=== PATIENT | female | born 1925 | race Caucasian/White ===

== ENCOUNTER 2016-10-15 01:58 | Emergency (ER) | payer MEDICARE ==
[2016-10-15] MEDS ORDERED: Sodium Chloride 0.9% 1000 ML 1,000 ML IV STA ×2 (02:31→04:39)
[2016-10-15 02:50] LABS: A-aADO2 15; ARTERIAL BLD GAS O2 SATURATION 98.8 % (95-100); ARTERIAL BLOOD GAS BASE EXCESS -6.4 (-2.0-2.0); ARTERIAL BLOOD GAS FIO2 21 %; ARTERIAL BLOOD GAS PO2 112 mmHg (75-100); ARTERIAL BLOOD GAS pH 7.52 (7.35-7.45)
--- NOTE | 2016-10-15 02:50 | ERPHSYRPT ---
- History of Present Illness Time Seen by Provider: 10/15/16 02:10 Historian: patient, custodial records Exam Limitations: clinical condition Patient Subjective Stated Complaint: Pt with decreased mental status per ECF report, vomiting, back and abd pain. Pt sts she hurts "all over". Triage Nursing Assessment: Pt alert, able to open eyes spontaneously, follow commands. Skin pale, diaphoretic, very warm to touch. RR 40-48/min, shallow. Weak thready radial and brachial pulse, strong carotid pulse. Cap refill 3 seconds. Physician History: PATIENT WITH HISTORY OF HYPERTENSION AND COPD, TRANSFERRED FROM [place] FOR EVALUATION OF ABDOMINAL PainN WITH DIFFICULTY BREATHING. Timing/Duration: today Quality: cramping, sharpness Abdominal Pain Onset Location: generalized abdomen Pain Radiation: no radiation Severity of Pain-Max: moderate Severity of Pain-Current: moderate Associated Symptoms: back, nausea, shortness of breath, vomiting Previous symptoms: same symptoms as today Allergies/Adverse Reactions: Penicillins Allergy (Verified 10/15/16 03:26) propoxyphene Allergy (Verified 10/15/16 03:26) Home Medications: Alprazolam [Xanax 0.5 mg] 0.5 mg PO BID 03/21/14 [History] Carvedilol 6.25 mg [Coreg 6.25 MG] 3.125 mg PO BID 03/21/14 [History] Furosemide [Lasix] 30 mg PO DAILY 03/21/14 [History] PANTOPRAZOLE 40 mg Tablet [Protonix 40MG Tablet] 20 mg PO HS 03/21/14 [ History] Potassium Chloride 10 Meq Tab* [Klor Con 10 MEQ] 10 meq PO TID 03/21/14 [ History] Aspirin 81 mg PO DAILY 05/17/14 [History] Docusate Sodium 100 mg [Colace 100 MG] 100 mg PO BID 05/17/14 [History] Oxycodone HCl/Acetaminophen [Percocet 7.5-325 mg Tablet] 1 each PO TID 05/17/14 [History] Albuterol 2.5 mg/0.5 ml [PROVENTIL Solution 2.5 MG/0.5 ML] 0.083 mg IH Q4H PRN PRN 05/16/15 [History] Atorvastatin Calcium [Lipitor 20MG Tablet] 20 mg PO HS 05/16/15 [History] Fentanyl 50Mcg Patch [Duragesic 50MCG Patch] 50 mcg TOP Q3D 05/16/15 [ History] Promethazine HCl 25 mg PO Q4H PRN PRN 05/16/15 [History] Allopurinol 100 mg [Zyloprim 100 mg] 100 mg PO DAILY 10/15/16 [History] Cranberry Fruit [Cranberry] 400 mg PO BID 10/15/16 [History] Magnesium Hydroxide 30 ml [Milk of Magnesia 30 ml] 30 ml PO DAILY PRN PRN 10/15/16 [History] Meloxicam 7.5 mg [Mobic 7.5 MG] 7.5 mg PO DAILY 10/15/16 [History] Mirtazapine [Remeron] 7.5 mg PO HS 10/15/16 [History] Nitrofurantoin Macro 100 mg [Macrobid 100MG Capsule] 100 mg PO BID [History] Hx Tetanus, Diphtheria Vaccination/Date Given: Yes Hx Influenza Vaccination/Date Given: Yes Hx Pneumococcal Vaccination/Date Given: Yes - Past Medical History Pertinent Past Medical History: Yes Neurological History: TIA ENT History: Cataracts Cardiac History: Congestive Heart Failure, Coronary Artery Disease, Hypertension , Myocardial Infarction (OR) Respiratory History: CHF Endocrine Medical History: Hypothyroidism Musculoskeletal History: Osteoarthritis GI Medical History: Diverticulitis, Gallbladder Disease History: No Pertinent History Psycho-Social History: No Pertinent History Female Reproductive Disorders: No Pertinent History Other Medical History: shingles - Past Surgical History Past Surgical History: Yes Neuro Surgical History: No Pertinent History Cardiac: Other Respiratory: No Pertinent History Gastrointestinal: Cholecystectomy Genitourinary: No Pertinent History Musculoskeletal: No Pertinent History Female Surgical History: No Pertinent History Other Surgical History: Thyroidectomy, cArotid artery cleanout, , heart cath - Social History Smoking Status: Unknown if ever smoked How long have you smoked: 50 years Exposure to second hand smoke: No Drug Use: none Patient Lives Alone: No - Nursing Vital Signs Nursing Vital Signs: Initial Vital Signs Respiratory Rate 44 H 10/15/16 01:59 Blood Pressure 137/74 10/15/16 01:59 - Physical Exam General Appearance: no apparent distress, alert Eye Exam: PERRL/EOMI, eyes nml inspection Ears, Nose, Throat Exam: normal ENT inspection, pharynx normal, moist mucous membranes Neck Exam: normal inspection, non-tender, supple, full range of motion Respiratory Exam: normal breath sounds, lungs clear, No respiratory distress Cardiovascular Exam: regular rate/rhythm, normal heart sounds, tachycardia Gastrointestinal/Abdomen Exam: soft, normal bowel sounds, No tenderness ( PERIUMBILICAL TENDERNESS), No mass Back Exam: normal inspection, normal range of motion, No CVA tenderness, No vertebral tenderness Extremity Exam: normal inspection, normal range of motion, pelvis stable Neurologic Exam: alert, oriented x 3, cooperative, normal mood/affect, nml cerebellar function, sensation nml, No motor deficits Skin Exam: normal color, warm, dry Oxygen Delivery: Nasal Cannula - Course EKG Interpreted by Me: RATE, Sinus Rhythm, Sinus Tach, Other (THERE IS NO CHANGE IN LATERAL ST SEGMENT DEPRESSION COMPARED TO EKG 05/17/2014) - Radiology Exams Chest X-ray Interpretation: Interpreted by me (THERE IS A RIGHT INFRAHILAR INFILTRATE) - CT Exams Abdomen/Pelvis CT Interpretation: Tele-radiologist Report (THERE IS 2 SEPARATE FOCI OF POSSIBLE DIVERTICULITIS INVOLVING THE SIGMOID AND DISTAL ASCENDING COLON.) Ordered Tests: Active Orders 24 hr Category Date Time Status EKG-ER Only STAT Care 10/15/16 02:31 Active Braswell [Catheter-[place] Braswell] STAT Care 10/15/16 03:24 Active IV Insertion STAT Care 10/15/16 02:31 Active ABDOMEN AND PELVIS W/0 CONTRAS [CT] Stat Exams 10/15/16 03:49 Completed CHEST 1 VIEW (PORTABLE) Stat Exams 10/15/16 02:33 Completed ABG [ARTERIAL BLOOD GASES] Stat Lab 10/15/16 02:47 Completed BLOOD CULTURE Stat Lab 10/15/16 02:50 Received BMP Stat Lab 10/15/16 02:50 Completed CBC W DIFF Stat Lab 10/15/16 02:31 Completed CMP Stat Lab 10/15/16 02:50 Completed LIPASE Stat Lab 10/15/16 02:50 Completed Lactic Acid Stat Lab 10/15/16 02:49 Completed Lactic Acid Stat Lab 10/15/16 05:02 Completed Manual Differential NC Stat Lab 10/15/16 02:31 Completed Pathologist Review Stat Lab 10/15/16 02:31 Completed TROPONIN Stat Lab 10/15/16 02:50 Completed TROPONIN Stat Lab 10/15/16 05:00 Completed UA W/ MICROSCOPIC Stat Lab 10/15/16 03:00 Completed Urine Triage Profile Stat Lab 10/15/16 02:50 Completed Transfer Order Routine Transfer 10/15/16 02:27 Ordered Medication Summary Discontinued Medications Generic Name Dose Route Start Last Admin Trade Name Freq PRN Reason Stop Dose Admin Aspirin Confirm 10/15/16 04:10 Aspirin 600 Mg Administered 10/15/16 04:11 Dose 600 mg .ROUTE .STK-MED ONE Aspirin 300 mg 10/15/16 04:34 10/15/16 04:42 Aspirin 600 Mg CO 10/15/16 04:35 300 mg STAT ONE Administration Sodium Chloride 1,000 mls @ 500 mls/hr 10/15/16 02:31 10/15/16 03:22 Sodium Chloride 0.9% 1000 Ml IV 10/15/16 04:30 999 mls/hr .Q2H STA Infusion Sodium Chloride Confirm 10/15/16 02:56 Sodium Chloride 0.9% 1000 Ml Administered 10/15/16 02:57 Dose 1,000 mls @ ud .ROUTE .STK-MED ONE Sodium Chloride Confirm 10/15/16 03:02 Sodium Chloride 0.9% 1000 Ml Administered 10/15/16 03:03 Dose 1,000 mls @ ud .ROUTE .STK-MED ONE Levofloxacin/Dextrose 500 mg in 100 mls @ 100 mls/hr 10/15/16 03:06 10/15/16 03:07 Levofloxacin 500mg/100ml D5w IV 10/15/16 04:05 100 mls/hr STAT STA Administration Levofloxacin/Dextrose Confirm 10/15/16 03:07 Levofloxacin 500mg/100ml D5w Administered 10/15/16 03:08 Dose 500 mg in 100 mls @ ud IV .STK-MED ONE Sodium Chloride 1,000 mls @ 500 mls/hr 10/15/16 04:39 10/15/16 05:38 Sodium Chloride 0.9% 1000 Ml IV 10/15/16 06:38 100 mls/hr .Q2H STA Infusion Metronidazole 500 mg in 100 mls @ 200 mls/hr 10/15/16 05:37 10/15/16 05:53 Flagyl 500 Mg Ivpb IV 10/15/16 06:06 200 mls/hr STAT STA Administration Metronidazole Confirm 10/15/16 05:53 Flagyl 500 Mg Ivpb Administered 10/15/16 05:54 Dose 500 mg in 100 mls @ ud IV .STK-MED ONE Ondansetron HCl 4 mg 10/15/16 03:06 10/15/16 03:07 Zofran 4 Mg/2 Ml Vial IV 10/15/16 03:07 4 mg STAT ONE Administration Ondansetron HCl Confirm 10/15/16 03:07 Zofran 4 Mg/2 Ml Vial Administered 10/15/16 03:08 Dose 4 mg .ROUTE .STK-MED ONE Lab/Rad Data: Laboratory Result Diagrams 10/15/16 02:31 10/15/16 02:50 Laboratory Results 10/15/16 10/15/16 10/15/16 Range/Units 05:02 05:00 03:00 WBC (4.0-10.5) K/mm3 RBC (4.1-5.4) M/mm3 Hgb (12.0-16.0) gm/dl Hct (35-47) % MCV (78-100) fl MCH (26-32) pg MCHC (32-36) g/dl RDW (11.5-14.0) % Plt Count (150-450) K/mm3 MPV (6-9.5) fl Segmented Neutrophils (36.0-66.0) % Band Neutrophils (0.0-2.0) % Lymphocytes (Manual) (24-44) % Monocytes (Manual) (0.0-12.0) % Differential Comment Platelet Estimate (NORMAL) Anisocytosis Smear Path Review Puncture Site pCO2 (35-45) mmHg pO2 (75-100) mmHg Base Excess (-2.0-2.0) O2 Saturation (94-100) g/dF ABG pH (7.35-7.45) ABG HCO3 (22-28) ABG O2 Sat (Measured) (95-100) % Denis Test A-a Gradient a/A Ratio Hemoglobin Carboxyhemoglobin (0.0-6.9) % THgb Methemoglobin (1.4-1.5) % Potassium (3.5-5.1) Temperature C POC O2 Flow Rate % Sodium (136-145) mEq/L Chloride (98-107) mEq/L Carbon Dioxide (21-32) mEq/L Anion Gap (5-15) MEQ/L BUN (9-20) mg/dL Creatinine (0.55-1.30) mg/dl Estimated GFR ML/MIN Glucose (70-110) MG/DL Lactic Acid 3.6 H (0.4-2.0) Calcium (8.5-10.1) mg/dL Total Bilirubin (0.2-1.0) mg/dL AST (15-37) U/L ALT (12-78) U/L Alkaline Phosphatase (46-116) U/L Troponin I 14.293 H* (0.000-0.056) ng/ml Serum Total Protein (6.4-8.2) gm/dL Albumin (3.4-5.0) g/dL Lipase (73-393) U/L Ur Collection Type CCMS Urine Color DARK YELLOW (YELLOW) Urine Appearance CLOUDY (CLEAR) Urine pH 6.0 (5-6) Ur Specific [place] 1.010 (1.005-1.025) Urine Protein 30 (Negative) Urine Ketones NEGATIVE (NEGATIVE) Urine Blood 250 (0-5) Brock/ul Urine Nitrite NEGATIVE (NEGATIVE) Urine Bilirubin NEGATIVE (NEGATIVE) Urine Urobilinogen NORMAL (0-1) mg/dL Ur Leukocyte Esterase 2+ (NEGATIVE) Urine Microscopic RBC >100 (0-2) /HPF Urine Microscopic WBC >100 (0-5) /HPF Urine Bacteria MODERATE (NEGATIVE) /HPF Urine Glucose NEGATIVE (NEGATIVE) mg/dL Urine Opiates Level (NEGATIVE) Ur Methadone (NEGATIVE) Urine Barbiturates (NEGATIVE) Ur Phencyclidine (PCP) (NEGATIVE) Urine Amphetamine (NEGATIVE) U Benzodiazepine Level (NEGATIVE) Urine Cocaine (NEGATIVE) Urine Marijuana (THC) (NEGATIVE) Specimen Received 10/15/16 0400 10/15/16 10/15/16 10/15/16 Range/Units 02:50 02:50 02:49 WBC (4.0-10.5) K/mm3 RBC (4.1-5.4) M/mm3 Hgb (12.0-16.0) gm/dl Hct (35-47) % MCV (78-100) fl MCH (26-32) pg MCHC (32-36) g/dl RDW (11.5-14.0) % Plt Count (150-450) K/mm3 MPV (6-9.5) fl Segmented Neutrophils (36.0-66.0) % Band Neutrophils (0.0-2.0) % Lymphocytes (Manual) (24-44) % Monocytes (Manual) (0.0-12.0) % Differential Comment Platelet Estimate (NORMAL) Anisocytosis Smear Path Review Puncture Site pCO2 (35-45) mmHg pO2 (75-100) mmHg Base Excess (-2.0-2.0) O2 Saturation (94-100) g/dF ABG pH (7.35-7.45) ABG HCO3 (22-28) ABG O2 Sat (Measured) (95-100) % Denis Test A-a Gradient a/A Ratio Hemoglobin Carboxyhemoglobin (0.0-6.9) % THgb Methemoglobin (1.4-1.5) % Potassium 4.1 (3.5-5.1) Temperature C POC O2 Flow Rate % Sodium 134 L (136-145) mEq/L Chloride 100 (98-107) mEq/L Carbon Dioxide 20.4 L (21-32) mEq/L Anion Gap 17.7 H (5-15) MEQ/L BUN 27 H (9-20) mg/dL Creatinine 1.68 H (0.55-1.30) mg/dl Estimated GFR 30 ML/MIN Glucose 160 H (70-110) MG/DL Lactic Acid 4.0 H (0.4-2.0) Calcium 8.9 (8.5-10.1) mg/dL Total Bilirubin 0.20 (0.2-1.0) mg/dL AST 136 H (15-37) U/L ALT 50 (12-78) U/L Alkaline Phosphatase 155 H (46-116) U/L Troponin I 15.619 H* (0.000-0.056) ng/ml Serum Total Protein 6.3 L (6.4-8.2) gm/dL Albumin 2.3 L (3.4-5.0) g/dL Lipase 226 (73-393) U/L Ur Collection Type Urine Color (YELLOW) Urine Appearance (CLEAR) Urine pH (5-6) Ur Specific [place] (1.005-1.025) Urine Protein (Negative) Urine Ketones (NEGATIVE) Urine Blood (0-5) Brock/ul Urine Nitrite (NEGATIVE) Urine Bilirubin (NEGATIVE) Urine Urobilinogen (0-1) mg/dL Ur Leukocyte Esterase (NEGATIVE) Urine Microscopic RBC (0-2) /HPF Urine Microscopic WBC (0-5) /HPF Urine Bacteria (NEGATIVE) /HPF Urine Glucose (NEGATIVE) mg/dL Urine Opiates Level NEG. (NEGATIVE) Ur Methadone NEG. (NEGATIVE) Urine Barbiturates NEG. (NEGATIVE) Ur Phencyclidine (PCP) NEG. (NEGATIVE) Urine Amphetamine NEG. (NEGATIVE) U Benzodiazepine Level POS. (NEGATIVE) Urine Cocaine NEG. (NEGATIVE) Urine Marijuana (THC) NEG. (NEGATIVE) Specimen Received 10/15/16 10/15/16 Range/Units 02:47 02:31 WBC 32.2 H* (4.0-10.5) K/mm3 RBC 3.07 L (4.1-5.4) M/mm3 Hgb 9.5 L (12.0-16.0) gm/dl Hct 30.3 L (35-47) % MCV 98.7 (78-100) fl MCH 30.9 (26-32) pg MCHC 31.4 L (32-36) g/dl RDW 14.5 H (11.5-14.0) % Plt Count 258 (150-450) K/mm3 MPV 10.4 H (6-9.5) fl Segmented Neutrophils 81 H (36.0-66.0) % Band Neutrophils 15 H (0.0-2.0) % Lymphocytes (Manual) 3 L (24-44) % Monocytes (Manual) 1 (0.0-12.0) % Differential Comment ABNORMAL Platelet Estimate NORMAL (NORMAL) Anisocytosis 1+ Smear Path Review Puncture Site RIGHT RADIAL pCO2 18 L* (35-45) mmHg pO2 112 H (75-100) mmHg Base Excess -6.4 L (-2.0-2.0) O2 Saturation 94.8 (94-100) g/dF ABG pH 7.52 H (7.35-7.45) ABG HCO3 14.7 L* (22-28) ABG O2 Sat (Measured) 98.8 (95-100) % Denis Test YES A-a Gradient 15 a/A Ratio 0.88 Hemoglobin 10.2 Carboxyhemoglobin 2.3 (0.0-6.9) % THgb Methemoglobin 1.8 H (1.4-1.5) % Potassium 3.9 (3.5-5.1) Temperature 37.0 C POC O2 Flow Rate 21 % Sodium (136-145) mEq/L Chloride (98-107) mEq/L Carbon Dioxide (21-32) mEq/L Anion Gap (5-15) MEQ/L BUN (9-20) mg/dL Creatinine (0.55-1.30) mg/dl Estimated GFR ML/MIN Glucose (70-110) MG/DL Lactic Acid (0.4-2.0) Calcium (8.5-10.1) mg/dL Total Bilirubin (0.2-1.0) mg/dL AST (15-37) U/L ALT (12-78) U/L Alkaline Phosphatase (46-116) U/L Troponin I (0.000-0.056) ng/ml Serum Total Protein (6.4-8.2) gm/dL Albumin (3.4-5.0) g/dL Lipase (73-393) U/L Ur Collection Type Urine Color (YELLOW) Urine Appearance (CLEAR) Urine pH (5-6) Ur Specific [place] (1.005-1.025) Urine Protein (Negative) Urine Ketones (NEGATIVE) Urine Blood (0-5) Brock/ul Urine Nitrite (NEGATIVE) Urine Bilirubin (NEGATIVE) Urine Urobilinogen (0-1) mg/dL Ur Leukocyte Esterase (NEGATIVE) Urine Microscopic RBC (0-2) /HPF Urine Microscopic WBC (0-5) /HPF Urine Bacteria (NEGATIVE) /HPF Urine Glucose (NEGATIVE) mg/dL Urine Opiates Level (NEGATIVE) Ur Methadone (NEGATIVE) Urine Barbiturates (NEGATIVE) Ur Phencyclidine (PCP) (NEGATIVE) Urine Amphetamine (NEGATIVE) U Benzodiazepine Level (NEGATIVE) Urine Cocaine (NEGATIVE) Urine Marijuana (THC) (NEGATIVE) Specimen Received - Progress Progress Note: THE FENTANYL PATCH REMOVED UPON ARRIVAL TO ER, PATIENT MUCH MORE ALERT 10/15/16 03:05 PATIENT PLACED ONTO SEPSIS PROTOCOL 54KG X [id number] AFTER 2 SETS OF BLOOD CULTURES ADMINISTERED IV LEVAQUIN 500MG IVPB THE LACTIC ACID 4.0 AT 0249 10/15/16 03:54 10/15/16 04:01 10/15/16 05:18 THE REPEAT LACTIC ACID -3.6 10/15/16 05:27 Discussed with : Other (DISCUSSED WITH DR Cindy SHORE AT 0510 ACCEPTS TRANSFER TO [facility]IA [facility]) - Departure Time of Disposition: 06:49 Departure Disposition: Transfer Clinical Impression: PNEUMONIA, UROSEPSIS, ELEVATED TROPONIN, ACUTE SIGMOID DIVERTICULITIS Condition: Stable Critical Care Time: No Referrals: GIOVANNI PETERS [ACTIVE STAFF] -
[2016-10-15 02:52] LABS: ALLEN TEST OK? YES
[2016-10-15] MEDS ORDERED: Sodium Chloride 0.9% 1000 ML 1,000 ML ONE ×2 (02:56→03:02)
[2016-10-15 02:57] LABS: Mean Cell Volume 98.7 fl (78-100); Mean Corpuscular Hemoglobin 30.9 pg (26-32); Mean Platelet Volume 10.4 fl (6-9.5); Platelet Count 258 K/mm3 (150-450); Red Blood Count 3.07 M/mm3 (4.1-5.4); Red Cell Distribution Width 14.5 % (11.5-14.0)
[2016-10-15] MEDS ORDERED: Zofran 4 MG/2 ML VIAL IV ONE (03:06)
[2016-10-15] MEDS ORDERED: Levofloxacin 500MG/100ML D5W 500 MG/100 ML BAG IV STA (03:06)
[2016-10-15] MEDS ORDERED: Zofran 4 MG/2 ML VIAL ONE (03:07)
[2016-10-15] MEDS ORDERED: Levofloxacin 500MG/100ML D5W 500 MG/100 ML BAG IV ONE (03:07)
[2016-10-15 03:21] VITALS: O2SAT 94
[2016-10-15 03:41] LABS: White Blood Count 32.2 K/mm3 (4.0-10.5)
[2016-10-15 03:41] LABS: ALBUMIN 2.3 g/dL (3.4-5.0); ANION GAP 17.7 MEQ/L (5-15); BILIRUBIN,TOTAL 0.2 mg/dL (0.2-1.0); Carbon Dioxide 20.4 mEq/L (21-32); Potassium 4.1 mEq/L (3.5-5.1); Total Protein 6.3 gm/dL (6.4-8.2)
[2016-10-15 03:42] LABS: TROPONIN 15.619 ng/ml (0.000-0.056)
[2016-10-15 04:03] LABS: Bilirubin NEGATIVE (NEGATIVE); Blood 250 Ery/ul (0-5); Collection Type CCMS; Glucose NEGATIVE (NEGATIVE); Leukocyte Esterase 2+ (NEGATIVE)
[2016-10-15 04:04] LABS: Bacteria MODERATE /HPF (NEGATIVE); COMPLETE URINE MICROSCOPIC? YES; WBC >100 /HPF (0-5)
[2016-10-15] MEDS ORDERED: ASPIRIN 600 MG ONE (04:10)
[2016-10-15] MEDS ORDERED: ASPIRIN 600 MG PR ONE (04:34)
[2016-10-15 04:44] LABS: BAND 15 % (0.0-2.0); Total Cells Counted 100
[2016-10-15 04:46] LABS: ANISOCYTOSIS 1+; Platelet Estimate NORMAL (NORMAL)
[2016-10-15 05:25] LABS: Lactic Acid 3.6 (0.4-2.0)
[2016-10-15] MEDS ORDERED: FLAGYL 500 MG IVPB 500 MG/100 ML BAG IV STA (05:37)
[2016-10-15] MEDS ORDERED: FLAGYL 500 MG IVPB 500 MG/100 ML BAG IV ONE (05:53)
[2016-10-15 06:49] VITALS: BP 101/63; PULSE 86
--- NOTE | 2016-10-15 09:04 | XRAY ---
Indication: Abdominal pain and nausea. Multiple contiguous axial images obtained through the abdomen and pelvis without contrast as ordered. Comparison: March 16, 2015. Lung bases demonstrates slightly increasing moderate bibasilar effusions with compressive atelectasis. Heart remains enlarged. There is now small hiatal hernia. Noncontrasted stomach and bowel loops appear nonobstructed. There is mild sigmoid diverticulosis with moderate pericolonic stranding favoring diverticulitis. Remaining colon demonstrates minimal/mild pericolonic stranding greatest in the ascending colon suggesting additional colitis. Tiny pelvic and right colic free fluid but no walled off fluid collection or free air. Stable 1 cm noncalcified left adrenal gland mass. Uterus again demonstrates endometrial cavity air today without fluid level layering. Again cholecystectomy, reported appendectomy, and calcified splenic granulomas. There is now a Braswell balloon catheter emptying the bladder. Remaining liver, pancreas, spleen, right adrenal gland, kidneys, and ureters appear unremarkable for noncontrast exam. There remains heavy aortoiliac calcifications and 2.4 cm right common iliac artery fusiform aneurysm. Osseous structures intact again with advanced spinal degenerative changes and scoliosis. There are now remote appearing compression fractures of T12/L4 with approximately 50% height loss. Impression: 1. Sigmoid diverticulitis. Remaining colon demonstrates pericolonic stranding especially ascending colon suggestive of additional colitis. Tiny reactive free fluid in the right colic gutter and pelvis. No walled off fluid collection or perforation. 2. Again abnormal endometrial cavity air collection of uncertain etiology or clinical significance. 3. New small hiatal hernia. 4. Stable 1 m left adrenal gland mass favored to be benign given stability over the years. 5. New remote-appearing T12/L4 compression fractures. 6. Worsening bibasilar pleural effusions with cardiomegaly. Rule out cardiac decompensation. 7. Stable 2.4 cm common iliac artery aneurysm. Comment: Preliminary interpretation was made by [facility]. No discrepancy. CT DI 17.38
--- NOTE | 2016-10-15 10:11 | XRAY ---
Indication: Cough. Comparison: June 03, 2014. Portable chest demonstrates new small bibasilar effusions, mild pulmonary edema, and borderline cardiomegaly concerning for cardiac decompensation. Superimposed pneumonia not completely excluded. Bony thorax intact again with osteopenia, degenerative changes, and scoliosis.
== END 2016-10-15 06:50 | disposition short-term general hospital (02) ==
LOC: ED 01:58
DX: J18.9 Pneumonia, unspecified organism (principal); A41.9 Sepsis, unspecified organism; N39.0 Urinary tract infection, site not specified; R79.89 Other specified abnormal findings of blood chemistry; K57.32 Diverticulitis of large intestine without perforation or abscess without bleeding; R41.82 Altered mental status, unspecified; I10 Essential (primary) hypertension; J44.9 Chronic obstructive pulmonary disease, unspecified; R10.9 Unspecified abdominal pain; R07.1 Chest pain on breathing; R11.2 Nausea with vomiting, unspecified; Z79.899 Other long term (current) drug therapy; I50.9 Heart failure, unspecified; I25.10 Atherosclerotic heart disease of native coronary artery without angina pectoris; I25.2 Old myocardial infarction; E03.9 Hypothyroidism, unspecified
CPT/HCPCS: 36415; 36600; 51702; 71010; 74176; 80048; 80053; 80307; 81000; 82375; 82803; 83605; 83690; 84484; 85025; 87040; 93005; 96360; 96361; 96365; 96366; 96367; 96374; 99285; J1956; J2405; A9270-GY